=== PATIENT | female | born 1995 | race Caucasian/White ===

== ENCOUNTER 2021-10-04 15:42 | Emergency (ER) | payer OTHER ==
[~2021-10-04] VITALS: Ht 160 cm; Wt 98.4 kg
[2021-10-04] MEDS ORDERED: Motrin,Rufen800 MG PO (18:15)
[2021-10-04] MEDS ORDERED: CYCLOBENZAPRINE5 M3 PO (18:15)
== END 2021-10-04 18:16 | disposition home or self-care (01) ==
LOC: ED 15:42
DX: S16.1XXA Strain of muscle, fascia and tendon at neck level, initial encounter (principal); V49.88XA Car occupant (driver) (passenger) injured in other specified transport accidents, initial encounter; Y93.89 Activity, other specified; Y92.413 State road as the place of occurrence of the external cause; Y99.9 Unspecified external cause status